=== PATIENT | male | born 1965 | race Caucasian/White ===

== ENCOUNTER 2017-09-28 04:38 | Emergency (ER) | payer OTHER ==
[~2017-09-28] VITALS: Ht 188 cm; Wt 74.8 kg
[~2017-09-28 04:38] MED LIST: ALPR1; AMOX500 PO; CLIN300 PO; EFFEXOR 150 MG QD; HYDACE5 PO; IBUP800; IBUP800 PO; OXYC40ER; PENVK500 PO; PROACE100 PO; PROM25 PO; Polytrim Eye Dr10 ML RIGHTEYE; SUBOXONE 8 MG-1 EACH SL; SULTRIDS PO; TRAM50 PO; TRAZ100; TRAZODONE; VENL75
[2017-09-28] MEDS ORDERED: ERYT1OIN RIGHTEYE (05:21)
== END 2017-09-28 05:37 | disposition home or self-care (01) ==
LOC: ER 04:38
DX: H57.11 Ocular pain, right eye (principal); F17.200 Nicotine dependence, unspecified, uncomplicated; Z88.6 Allergy status to analgesic agent
CPT/HCPCS: 99283

== ENCOUNTER 2017-10-03 10:01 | Emergency (ER) | payer OTHER ==
[~2017-10-03 10:01] MED LIST changes: +ERYT1OIN RIGHTEYE
== END 2017-10-03 10:15 | disposition left against medical advice (07) ==
LOC: ER 10:01
DX: Z53.21 Procedure and treatment not carried out due to patient leaving prior to being seen by health care provider (principal)

== ENCOUNTER 2017-10-05 04:30 | Emergency (ER) | payer OTHER ==
[~2017-10-05] VITALS: Ht 188 cm; Wt 74.8 kg
== END 2017-10-05 05:23 | disposition home or self-care (01) ==
LOC: ER 04:30
DX: H57.8 Other specified disorders of eye and adnexa (principal); Z88.8 Allergy status to other drugs, medicaments and biological substances; Z79.899 Other long term (current) drug therapy; Z79.2 Long term (current) use of antibiotics; F17.200 Nicotine dependence, unspecified, uncomplicated
CPT/HCPCS: 99282

== ENCOUNTER → 2020-04-21 | Outpatient (CLI) | payer OTHER ==
[2020-04-24 02:07] LABS: CHLAMYDIA TRACHOMATIS, NAA Negative (Negative); NEISSERIA GONORRHOEAE, NAA Negative (Negative)
== END | disposition home or self-care (01) ==
LOC: LAB 16:30 → LAB SHORT 16:30
PROVIDERS: Nurse Practitioner Family
DX: R36.0 Urethral discharge without blood (principal)
CPT/HCPCS: 87086; 87491; 87591